=== PATIENT | male | born 1990 | race Caucasian/White ===

== ENCOUNTER 2016-10-21 18:03 | Emergency (ER) | payer SELFPAY ==
[~2016-10-21] VITALS: Ht 177.8 cm; Wt 81.6 kg
--- NOTE | 2016-10-21 19:24 | PHYS DOC ---
Past Medical History Past Medical History: Anxiety, Asthma, Bipolar, GERD, IBS, Migraines, Other Additional Past Medical Histor: SVT, PTSD, BIPOLAR WITH PSYCHOSIS Past Surgical History: Cholecystectomy, Tonsillectomy Additional Past Surgical Histo: HEART ABLASION Alcohol Use: None Drug Use: None Adult General Chief Complaint Chief Complaint: PELVIC PAIN HPI HPI Patient is a 26 year old male with history of bipolar, anxiety who presents with pelvic pain radiating to his back with watery stools earlier today. Reports history of chronic constipation. No, it is reports occasional nausea, no vomiting.. No fever chills or sweats. Previous cholecystectomy. Review of Systems Review of Systems Review of symptoms as per history of present illness. Allergies Allergies Allergies Coded Allergies Type Severity Reaction Last Updated Verified Iodinated Contrast Media - IV Dye Allergy Intermediate 03/02/15 Yes NSAIDS (Non-Steroidal Anti-Inflamma Allergy Intermediate 03/02/15 Yes famotidine Allergy Intermediate 03/02/15 Yes latex Allergy Intermediate 03/02/15 Yes milk Allergy Intermediate 03/02/15 Yes morphine Allergy Intermediate 03/02/15 Yes tramadol Allergy Intermediate 03/02/15 Yes acetaminophen Allergy Unknown 03/19/15 Yes propoxyphene Allergy Unknown 03/19/15 Yes Uncoded Allergies Type Severity Reaction Last Updated Verified FURNACE HELPER Allergy Mild 03/02/15 MENTAL MEDICATIONS Allergy Unknown 03/02/15 Physical Exam Physical Exam Constitutional: Well developed, well nourished, no acute distress, non-toxic appearance. [] HENT: Normocephalic, atraumatic, bilateral external ears normal, nose normal. [] Eyes: PERRLA, EOMI, conjunctiva normal, no discharge. [] Neck: Normal range of motion, no tenderness. [] Cardiovascular:Heart rate regular rhythm, no murmur [] Lungs & Thorax: Bilateral breath sounds clear to auscultation [] Abdomen: Bowel sounds normal, soft, suprapubic and fullness, no rebound rigidity or guarding, negative McBurney's. [] Skin: Warm, dry, no erythema, no rash. [] Neurologic: Alert and oriented X 3, normal motor function, normal sensory function, no focal deficits noted. [] Psychologic: Affect normal, judgement normal, mood normal. [] Current Patient Data Vital Signs Vital Signs Date Time Temp Pulse Resp B/P (MAP) Pulse Ox O2 Delivery O2 Flow Rate FiO2 9/2/17 18:14 98.4 112 18 139/90 (106) 98 Room Air 98.4 EKG EKG [] Radiology/Procedures Radiology/Procedures [Acute abdominal series: Fecal impaction upon my review.] Course & Med Decision Making Course & Med Decision Making Pertinent Labs and Imaging studies reviewed. (See chart for details) [And soft, nonsurgical. Lower abdominal pain, cramping and diarrhea consistent with constipation. Recommend home supportive care with PCP follow-up.] Dragon Disclaimer Dragon Disclaimer This electronic medical record was generated, in whole or in part, using a voice recognition dictation system. Departure Departure Impression: Primary Impression: Constipation Disposition: HOME, SELF-CARE Condition: STABLE Patient Instructions: Constipation, Adult, [id number] Additional Instructions: You were evaluated in the emergency department for lower abdominal and back pain. Imaging studies were performed which show large amount of stool in your lower colon Rectum. Use fleets enema and take mag citrate at home to relieve constipation. Take 2 tablespoons of MiraLAX daily to prevent future episodes of constipation. Take Reglan as needed for nausea and Tylenol for pain. Follow-up with your PCP for further evaluation. TALISHA DUARTE DO Oct 21, 2016 19:24
[2016-10-21 19:28] VITALS: BP 151/85
--- NOTE | 2016-10-22 08:57 | RAD ---
Examination: Acute abdomen series History: History of abdominal pain, dark stools Comparison: None available Findings: The cardiomediastinal silhouette grossly appears unremarkable. There is no acute infiltrate or visualized pneumothorax. No evidence of free air noted under the hemidiaphragms. Curvilinear metallic density projecting in the right upper quadrant, nonspecific. Few surgical clips identified in the right upper quadrant of the abdomen The bowel gas pattern appears unremarkable Impression: 1. No acute cardiopulmonary findings. 2. Unremarkable bowel gas pattern. 3.Curvilinear metallic density projecting in the right upper quadrant, nonspecific.
== END 2016-10-21 19:29 | disposition home or self-care (01) ==
LOC: ER 18:03
DX: K59.00 Constipation, unspecified (principal); F41.9 Anxiety disorder, unspecified; J45.909 Unspecified asthma, uncomplicated; F31.9 Bipolar disorder, unspecified; K21.9 Gastro-esophageal reflux disease without esophagitis; K58.9 Irritable bowel syndrome, unspecified; G43.909 Migraine, unspecified, not intractable, without status migrainosus; F43.10 Post-traumatic stress disorder, unspecified; I47.1 Supraventricular tachycardia; Z90.49 Acquired absence of other specified parts of digestive tract; Z88.5 Allergy status to narcotic agent; Z88.8 Allergy status to other drugs, medicaments and biological substances; Z88.6 Allergy status to analgesic agent; Z91.041 Radiographic dye allergy status; Z91.040 Latex allergy status; Z91.011 Allergy to milk products
CPT/HCPCS: 74022; 99284